=== PATIENT | female | born 1970 | race Caucasian/White ===

== ENCOUNTER 2022-10-07 13:18 | Day surgery (SDC) | payer OTHER ==
[2022-10-07] MEDS ORDERED: Depo-Medrol 40 MG/ML IM ONE (13:19)
[2022-10-07] MEDS ORDERED: Sodium Chloride 0.9(Preservative Free) 10 ML IJ ONE (13:19)
[2022-10-07] MEDS ORDERED: DIPRIVAN 200 MG/20 ML IV ONE (15:16)
[2022-10-07] MEDS ORDERED: Lactated Ringers 1,000 ML IV ONE (16:36)
--- NOTE | 2022-10-07 16:50 | XRAY ---
Indication: Left L4-S1 transforaminal PEDRO. Intraoperative fluoroscopy provided for 35 seconds. 4 digital spot image submitted for interpretation demonstrates posterior needle tips projecting over the expected left left L4 and L5 nerve roots. Small amount of contrast injected for needle tip placement. Correlate with intraoperative findings/report.
--- NOTE | 2022-10-07 16:57 | XRAY ---
35 seconds of fluoroscopy was used in surgery for a left L4-S1 transforaminal PEDRO.
== END 2022-10-07 15:50 | disposition home or self-care (01) ==
LOC: SDC-PAIN 13:18
PROVIDERS: ATTEND Psychiatry & Neurology Pain Medicine
DX: M54.16 Radiculopathy, lumbar region (principal); Z79.899 Other long term (current) drug therapy
CPT/HCPCS: 64479; 64480; 72100; 77003; 81025; J1030; J2704; Q9966